=== PATIENT | female | born 1960 | race Caucasian/White ===

== ENCOUNTER 2016-05-17 08:05 | Emergency (ER) | payer OTHER ==
[2016-05-17] MEDS ORDERED: Ketorolac Tromethamine 30 MG/ML VIAL ONE (08:45)
[2016-05-17 08:56] LABS: #Basophils 0.1 thou/uL (0.0-0.2); #Eosinphils 0.2 thou/uL (0.0-0.7); #Lymphocytes 3.4 thou/uL (1.20-3.40); #Monocytes 0.9 thou/uL (0.11-0.59); #Neutrophils 5.7 thou/uL (1.40-6.50); %Basophils 0.8 % (0.0-1.0); %Eosinophils 1.9 % (0.0-10.0); %Monocytes 8.4 % (0.0-10.0); Hematocrit 39.9 % (36.0-47.0); Red Blood Cell (RBC) Count 4.24 mill/uL (4.20-5.40); White Blood Cell (WBC) Count 10.2 thou/uL (4.8-10.8)
[2016-05-17 09:06] LABS: Anion Gap 16 mmol/L (10-20); BUN (Urea Nitrogen) 16 mg/dL (9.8-20.1); Calc. Creatinine Clearance 0 mL/min (70-130); Calcium 9.3 mg/dL (7.8-10.44); Carbon Dioxide 24 mmol/L (22-29); Chloride 105 mmol/L (98-107); Estimated GFR-MDRD 85
[2016-05-17 09:10] LABS: Troponin I 0.017 ng/mL (< 0.028)
[2016-05-17] MEDS ORDERED: Ondansetron HCl/PF 4 MG/2 ML Vial ONE (09:45)
--- NOTE | 2016-05-17 11:15 | ERRECORD ---
[facility] EMERGENCY RECORD HPI CHEST PAIN (08:28 RWAG) CHIEF COMPLAINT: Patient presents for evaluation of chest pain, ongoing. HISTORIAN: History provided by patient, left intercostal,pleuritic chest pain. LOCATION: Symptoms are localized, most severe to left axilla. QUALITY: Unable to describe the quality of the pain. SEVERITY: Maximum severity of symptoms mild, Currently symptoms are mild, Maximum severity of pain rated as 5/10, Current severity of pain rated as 5/10. TIME COURSE: Patient unable to describe onset of symptoms, There has been no change in the patient's symptoms over time. ASSOCIATED WITH: No associated symptoms. EXACERBATED BY: Patient's condition exacerbated by deep breaths. RELIEVED BY: Patient's condition relieved by nothing. HEART SCORE: Patients history is Slightly Suspicious (0), Patients ECG is normal (0), Patients age is equal to or less than 45 (0), Patient has no risk factors known (0). ROS (08:31 RWAG) CONSTITUTIONAL: Negative constitutional review of systems. EYES: Negative eye review of systems. ENT: Negative ears, nose, throat review of systems. CARDIOVASCULAR: Historian reports chest pain. RESPIRATORY: Negative respiratory review of systems. GI: Negative gastrointestinal review of systems. GENITOURINARY FEMALE: Negative genitourinary review of systems. MUSCULOSKELETAL: Negative musculoskeletal review of systems. SKIN: Negative skin review of systems. NEUROLOGIC: Negative neurologic review of systems. ENDOCRINE: Negative endocrine review of systems. HEMO/LYMPHATIC: Normal hematologic/lymphatic system review. ALLERGIC/IMMUNOLOGIC: Normal allergy/immunologic system review. PSYCHIATRIC: Negative psychiatric review of systems. NOTES: All systems reviewed, negative except as described above. PAST MEDICAL HISTORY (08:13 KMOR) MEDICAL HISTORY: Notes: hepatic hemiagoma, Flu vaccine up to date, Tetanus immunization up to date. FEMALE SURGICAL HISTORY: breast reduction, Surgical history of section, Surgical history of hysterectomy. PSYCHIATRIC HISTORY: No previous psychiatric history. SOCIAL HISTORY: Patient drinks socially, Patient denies drug use, Patient has no smoking history. KNOWN ALLERGIES &a-1R&a+25V*p+0X*q4548I*c202B*c15G*c2P*p-0X&a-25V&a+1R Name: Lupe Thompson V : 1960 F56 MedRec: [id number] AcctNum: [id number] Prepared: Neetu May 17, 2016 11:13 by Interface Page 1 of 3 pMD [facility] EMERGENCY RECORD HYDROcodone bitartrate (bulk): Reaction: Rash traMADol: - itching CURRENT MEDICATIONS (08:15 KMOR) levothyroxine: TABLET : Strength - 100 mcg : ORAL Patient Dose: unk mcg Oral. VITAL SIGNS VITAL SIGNS: BP: 153/88, Resp: 18, Pain: 5, Time: 05/17/2016 08:11. (08:11 KMOR) Pulse: 85, Temp: 97.6 (Oral), O2 sat: 100 on Room Air, Time: 05/17/2016 08:14. (08:14 KMOR) BP: 158/88, Pulse: 84, Resp: 17, Pain: 6, Time: 05/17/2016 09:01. (09:01 AHOO) O2 sat: 94 on Room Air, Time: 05/17/2016 09:40. (09:40 KMOR) BP: 156/75, Pulse: 89, Resp: 20, O2 sat: 100 on Room Air, Time: 05/17/2016 09:45. (09:45 AHOO) Pain: 4, Time: 05/17/2016 10:08. (10:08 AHOO) BP: 140/75, Pulse: 86, Resp: 20, Temp: 97.7 (Oral), Pain: 0, O2 sat: 94 on Room Air, Time: 05/17/2016 10:30. (10:30 KMOR) PHYSICAL EXAM (08:32 RWAG) CONSTITUTIONAL: Vital Signs Reviewed. HEAD: Head exam normal. EYES: Eye exam normal. ENT: ENT exam normal. NECK: Neck exam normal. RESPIRATORY CHEST: Respiratory and chest exam normal. CARDIOVASCULAR: Cardiovascular assessment normal. ABDOMEN FEMALE: Abdominal exam normal. BACK: Back exam normal. UPPER EXTREMITY: Upper extremity exam normal. LOWER EXTREMITY: Lower extremity exam normal. NEURO: Neuro exam normal. SKIN: Skin exam normal. LYMPHATIC: Lymphatic exam normal. PSYCHIATRIC: Psychiatric exam normal. RADIOLOGYINTERPRETATION (10:21 WM) MATCH MARKER: Preliminary review of CT scans by, Radiologist, ll lobe infiltrate no pe. MEDICATION ADMINISTRATION SUMMARY Drug Name: morphine injection, Dose Ordered: 4 mg, Route: IV Push, Status: Given, Time: 09:51 05/17/2016, Drug Name: Zofran intravenous, Dose Ordered: 4 mg, Route: IV Push, Status: Given, Time: 09:49 05/17/2016, Drug Name: ketorolac injection, Dose Ordered: 30 mg, Route: IV Push, &a-1R&a+25V*p+0X*[id number]*c202B*c15G*c2P*p-0X&a-25V&a+1R Name: Lupe Thompson V : 1960 F56 MedRec: [id number] AcctNum: [id number] Prepared: [facility] May 17, 2016 11:13 by Interface Page 2 of 3 pMD [facility] EMERGENCY RECORD Status: Given, Time: 08:51 05/17/2016, Detailed record available in Medication Service section. PROBLEM LIST No recorded problems DIAGNOSIS (10:23 WMEI) FINAL: PRIMARY: Pneumonia. PRESCRIPTION Zithromax oral: CAPSULE : 250 mg : ORAL : Quantity: 1 Unit: tab(s) Route: ORAL Schedule: once a day (in the morning) Dispense: 6 Unit: tab(s) May substitute. Refills: No Refills . (10:21 WMEI) NOTES: No refills. (10:21 WMEI) acetaminophen-codeine: TABLET : 300 mg-30 mg : ORAL : Quantity: 1 Unit: tab(s) Route: ORAL Schedule: every 4 hours prn Dispense: 15 Unit: tab(s) May substitute. Refills: No Refills POTENTIAL ALLERGY REACTION: 'HYDROcodone bitartrate (bulk) [hydrocodone/hydrocodone bitartrate]', 'traMADol [tramadol/tramadol HCl]' Override Rationale: has tolerated. (10:29 WMEI) NOTES: No refills. (10:29 WMEI) DISPOSITION PATIENT: Disposition Type: Discharge, Disposition: *Discharge Home. (10:23 WMEI) Patient left the department. (11:09 KMOR) Nevarez: OO=JUDY Pozo, July KMOR=CHAYITO Partida, Marilynn RWAG=MD Evelio, Dionisio WMEI=DO Ugarte William &a-1R&a+25V*p+0X*v5501O*c202B*c15G*c2P*p-0X&a-25V&a+1R Name: DonnaLupe V : 1960 F56 MedRec: [id number] AcctNum: [id number] Prepared: Neetu May 17, 2016 11:13 by Interface Page 3 of 3 pMD MTDD
--- NOTE | 2016-05-17 11:22 | PICIS ---
[facility] EMERGENCY RECORD TRIAGE (08:08 KMOR) TRIAGE NOTES: Sharp left sided pain, worse with deep breath. (08:08 KMOR) PATIENT: AGE: 56, GENDER: female, : Sun 1960, TIME OF GREET: SatMay 17, 2016 08:05, PREFERRED LANGUAGE: Ukrainian, ETHNICITY: Not or , ECODE BILLING MAP: [facility], SSN: [id number], Zip Code: [address], KG WEIGHT: 81.65, , , PERSON ID: [id number], PCP: Family Medicine, [facility]. (08:08 KMOR) NAME: Lupe Thompson V, PHONE: . (08:09) COMPLAINT: Left side pain. (08:08 KMOR) ADMISSION: URGENCY: 3 Urgent, ADMISSION SOURCE: Home, TRANSPORT: CAR, BED: ER -03. (08:08 KMOR) ASSESSMENT: Assessment: A&OX4. RR EVEN AND UNLABORED., Symptoms began 2 hours ago. (08:13 KMOR) PAIN: Patient complains of pain described as, sharp, shooting, on a scale 0-10 patient rates pain as 5, Location LEFT SIDE. (08:13 KMOR) IMMUNIZATIONS: Flu vaccine up to date, Tetanus immunization up to date. (08:13 KMOR) SIRS SCORING: Heart Rate 55-109 (0), Temp range 96.8-101.1 (0), respiratory rate 12-24 (0), Mental Status altered: no (0), Infection or Suspected Infection: No. (08:13 KMOR) TRIAGE SCREENING: Patient denies suicidal ideation, Patient denies presence of domestic violence. (08:13 KMOR) LMP: LMP: Hysterectomy. (08:13 KMOR) TREATMENTS IN PROGRESS: Medications Given, Naprosyn 0200 x 2 tablets. (08:13 KMOR) PROVIDERS: TRIAGE NURSE: Marilynn Partida RN. (08:08 KMOR) VITAL SIGNS: BP 153/88, Resp 18, Pain 5, Time 05/17/2016 08:11. (08:11 KMOR) KNOWN ALLERGIES HYDROcodone bitartrate (bulk): Reaction: Rash traMADol: - itching CURRENT MEDICATIONS (08:15 KMOR) levothyroxine: TABLET : Strength - 100 mcg : ORAL Patient Dose: unk mcg Oral. VITAL SIGNS VITAL SIGNS: BP: 153/88, Resp: 18, Pain: 5, Time: 05/17/2016 08:11. (08:11 KMOR) Pulse: 85, Temp: 97.6 (Oral), O2 sat: 100 on Room Air, Time: 05/17/2016 08:14. (08:14 KMOR) BP: 158/88, Pulse: 84, Resp: 17, Pain: 6, Time: 05/17/2016 09:01. (09:01 AHOO) O2 sat: 94 on Room Air, Time: 05/17/2016 09:40. (09:40 KMOR) BP: 156/75, Pulse: 89, Resp: 20, O2 sat: 100 on Room Air, Time: 05/17/2016 &a-1R&a+25V*p+0X*e6703D*c202B*c15G*c2P*p-0X&a-25V&a+1R Name: Lupe Thompson V : 1960 F56 MedRec: [id number] AcctNum: [id number] Prepared: Neetu May 17, 2016 22:50 by Interface Page 1 of 9 pMD [facility] EMERGENCY RECORD 09:45. (09:45 AHOO) Pain: 4, Time: 05/17/2016 10:08. (10:08 AHOO) BP: 140/75, Pulse: 86, Resp: 20, Temp: 97.7 (Oral), Pain: 0, O2 sat: 94 on Room Air, Time: 05/17/2016 10:30. (10:30 KMOR) NURSING ASSESSMENT: CARDIOVASCULAR (08:18 KMOR) CONSTITUTIONAL: Patient arrives ambulatory, Gait steady, History obtained from patient, Patient appears comfortable, Patient cooperative, Patient alert, Oriented to person, place and time, Skin warm, Skin dry, Skin normal in color, Mucous membranes pink, Mucous membranes moist, Patient is well-groomed, Patient complains of Left side pain, Patient reports sharp, shooting left side pain started while driving home from work. No shortness of breath, no nausea, no vomiting, no injury. PAIN: sharp pain, shooting pain, to the left chest, on a scale 0-10 patient rates pain as 5. CARDIOVASCULAR: Cardiovascular assessment findings include heart rate normal, Heart rhythm normal sinus, Heart sounds normal, S1, S2, Left radial pulse +3(easily palpated, considered normal), Right radial pulse +3(easily palpated, considered normal), no associated dyspnea, no associated dizziness, no associated edema, no associated palpitations, no associated paresthesias, no associated syncopal episode. RESPIRATORY/CHEST: Breath sounds clear, Respiratory assessment findings include respiratory effort easy, Respirations regular, Conversing normally, Neck and chest exam findings include trachea midline, Chest expansion equal, Chest movement symmetrical, no signs of distress, no associated cough noted. NOTES: Patient tolerated procedure well. NURSING PROCEDURE: LOAD BUILDER (08:20 KMOR) PATIENT IDENTIFIER: Patient actively involved in identification process, Patient's identity verified by patient stating name, Patient's identity verified by patient stating date. LOAD BUILDER: Cardiac monitoring indicated for complaint of chest pain, Patient placed on manager monitoring, Heart rate: 85, showing normal sinus rhythm, Patient placed on non-invasive blood pressure monitor, with disposable blood pressure cuff applied, Patient placed on continuous pulse oximetry, Adult/pediatric oxisensor applied, Oxygen saturation 98%. NOTES: Patient tolerated procedure well. NURSING PROCEDURE: DISCHARGE NOTE (11:03 AHOO) DISCHARGE: Patient discharged to home, ambulating without assistance, family driving, accompanied by parent, Summary of Care printed/ provided, Transition record given to patient, Discharge instructions given to patient, Discharge instructions given to father, Prescriptions given and instructions on side effects given, Above person(s) verbalized understanding of discharge instructions and follow-up care, Patient treated and evaluated by physician, &a-1R&a+25V*p+0X*p8923I*c202B*c15G*c2P*p-0X&a-25V&a+1R Name: DonnaLupe V : 1960 F56 MedRec: [id number] AcctNum: [id number] Prepared: Neetu May 17, 2016 22:50 by Interface Page 2 of 9 pMD [facility] EMERGENCY RECORD Notes: PT DAD PICKED HER UP. NURSING PROCEDURE: EKG CHART (08:28 KMOR) PATIENT IDENTIFIER: Patient actively involved in identification process, Patient's identity verified by patient stating name, Patient's identity verified by patient stating date. EKG: EKG indicated for complaint of chest pain, 12 lead EKG performed on the left chest, done by CHAYITO Subramanian, first EKG. FOLLOW-UP: After procedure, EKG for interpretation given to Dr. Fraser. NOTES: Patient tolerated procedure well. NURSING PROCEDURE: IV PATIENT IDENITIFIER: Patient actively involved in identification process, Patient's identity verified by patient stating name, Patient's identity verified by patient stating date, Patient's identity verified by hospital ID bracelet. (08:40 AHOO) Patient actively involved in identification process, Patient's identity verified by patient stating name, Patient's identity verified by patient stating date. (10:35 KMOR) IV SITE 1: IV therapy indicated for medication administration, IV established, to the right antecubital, using a 20 gauge catheter, in one attempt, Saline lock established, Flushed with normal saline (mls): 10ml, Labs drawn at time of placement, labeled in the presence of the patient and sent to lab. (08:40 AHOO) FOLLOW-UP SITE 1: IV discontinued, due to patient being discharged, catheter intact. (10:35 KMOR) NOTES: Patient tolerated procedure well. (10:35 KMOR) NURSING PROCEDURE: NURSE NOTES NURSES NOTES: Notes: Dr. Ugarte in to recheck patient. patient reports pain got worse just before pain medication but now going back down. Pain now just left of midline sternum. (09:23 KMOR) Notes: Dr. Ugarte in to review results with patient. (10:20 KMOR) NURSING PROCEDURE: TRANSPORT TO TESTS PATIENT IDENTIFIER: Patient actively involved in identification process, Patient's identity verified by patient stating name, Patient's identity verified by patient stating date. (09:55 KMOR) TRANSPORT TO TESTS: Transport indicated to facilitate diagnosis, Patient transported to CT scan, via wheelchair, Accompanied by x-ray anesthesia technician. (09:55 KMOR) FOLLOW-UP: After procedure, patient returned to emergency department. (10:05 AHOO) ORDER DETAILS &a-1R&a+25V*p+0X*z8686G*c202B*c15G*c2P*p-0X&a-25V&a+1R Name: Lupe Thompson V : 1960 F56 MedRec: [id number] AcctNum: [id number] Prepared: SatMay 17, 2016 22:50 by Interface Page 3 of 9 pMD [facility] EMERGENCY RECORD Order Name: B type Natriuretic Peptide, Status: Active, Time: 08:25 05/17/2016, User: AMANDA, - Ordered for: MD Fraser Richard, - Entered by: MD Fraser Richard - SatMay 17, 2016 08:25, - Quantity: 1, Order Name: Basic Metabolic Panel, Status: Active, Time: 08:25 05/17/2016, User: AMANDA, - Ordered for: MD Fraser Richard, - Entered by: MD Fraser Richard - SatMay 17, 2016 08:25, - Quantity: 1, Order Name: Cardiac Profile w/CKMB & Troponin - I, Status: Active, Time: 08:25 05/17/2016, User: AMANDA, - Ordered for: MD Fraser Richard, - Entered by: MD Fraser Richard - SatMay 17, 2016 08:25, - Quantity: 1, Order Name: CBC with Differential, Status: Active, Time: 08:25 05/17/2016, User: AMANDA, - Ordered for: MD Fraser Richard, - Entered by: MD Fraser Richard - SatMay 17, 2016 08:25, - Quantity: 1, Order Name: CTA Angio Chest W WO Con(PE Protocol), Status: Active, Time: 09:31 05/17/2016, User: AMANDA, - Ordered for: MD Fraser Richard, - Entered by: MD Fraser Richard - SatMay 17, 2016 09:31, - Quantity: 1, Order Name: D-Dimer (Quantitative), Status: Active, Time: 08:25 05/17/2016, User: AMANDA, - Ordered for: MD Fraser Richard, - Entered by: MD Fraser Richard - SatMay 17, 2016 08:25, - Quantity: 1, Order Name: EKG 12 Lead in Emergency Room, Status: Active, Time: 08:25 05/17/2016, User: AMANDA, - Ordered for: MD Fraser Richard, - Entered by: MD Fraser Richard - SatMay 17, 2016 08:25, - Quantity: 1, Order Name: SALINE LOCK, Status: Done, Time: 08:52 05/17/2016, User: YUNIER, - Ordered for: MD Fraser Richard, - Entered by: MD Fraser Richard - SatMay 17, 2016 08:25, - Quantity: 1, Order Name: XR Chest 1 View Portable, Status: Active, Time: 08:25 05/17/2016, User: AMANDA, - Ordered for: MD Fraser Richard, - Entered by: MD Fraser Richard - SatMay 17, 2016 08:25, - Quantity: 1. MEDICATION ADMINISTRATION SUMMARY Drug Name: morphine injection, Dose Ordered: 4 mg, Route: IV Push, Status: Given, Time: 09:51 05/17/2016, &a-1R&a+25V*p+0X*f6969A*c202B*c15G*c2P*p-0X&a-25V&a+1R Name: Lupe Thompson V : 1960 F56 MedRec: [id number] AcctNum: [id number] Prepared: SatMay 17, 2016 22:50 by Interface Page 4 of 9 D [facility] EMERGENCY RECORD Drug Name: Zofran intravenous, Dose Ordered: 4 mg, Route: IV Push, Status: Given, Time: 09:49 05/17/2016, Drug Name: ketorolac injection, Dose Ordered: 30 mg, Route: IV Push, Status: Given, Time: 08:51 05/17/2016, Detailed record available in Medication Service section. MEDICATION SERVICE ketorolac injection: Order: ketorolac injection (ketorolac tromethamine) - Dose: 30 mg : IV Push POTENTIAL CONTRAINDICATED INTERACTION: aspirin oral (aspirin) - Benefits outweigh risks, Patient tolerated similar in past Schedule: Now Ordered by: Dionisio Fraser MD Entered by: Dionisio Fraser MD [facility] May 17, 2016 08:26 , Acknowledged by: Tracy Pozo LVN [facility] May 17, 2016 08:45 Documented as given by: Tracy Pozo LVN [facility] May 17, 2016 08:51 Patient, Medication, Dose, Route and Time verified prior to administration. Amount given: 30mg, IV SITE #1 IVP, initial medication, Slowly, Catheter placement confirmed via flush prior to administration, IV site without signs or symptoms of infiltration during medication administration, No swelling during administration, No drainage during administration, IV flushed after administration, Correct patient, time, route, dose and medication confirmed prior to administration, Patient advised of actions and side-effects prior to administration, Allergies confirmed and medications reviewed prior to administration, Patient in position of comfort, Side rails up, Cart in lowest position, Family at bedside. : Follow Up : Response assessment performed, No signs or symptoms of allergic reaction noted, Decreased pain, _IV SITE #1:_. (09:24 KMOR) morphine injection: Order: morphine injection (morphine sulfate) - Dose: 4 mg : IV Push POTENTIAL ALLERGY REACTION: 'HYDROcodone bitartrate (bulk) [hydrocodone/hydrocodone bitartrate]', 'traMADol [tramadol/tramadol HCl]' - has taken before Schedule: Now Ordered by: Dionisio Fraser MD Entered by: Dionisio Fraser MD [facility] May 17, 2016 09:29 , Acknowledged by: Marilynn Partida RN [facility] May 17, 2016 09:32 Documented as given by: Tracy Pozo LVN [facility] May 17, 2016 09:51 Patient, Medication, Dose, Route and Time verified prior to administration. Amount given: 4MG, IV SITE #1 IVP, initial medication, Slowly, Catheter placement confirmed via flush prior to administration, IV site without signs or symptoms of infiltration during medication administration, No swelling during administration, No drainage during administration, IV flushed after administration, Correct patient, time, route, dose and medication confirmed prior to administration, Patient advised of actions and side-effects prior to administration, &a-1R&a+25V*p+0X*w0506J*c202B*c15G*c2P*p-0X&a-25V&a+1R Name: ElizabethtanaLupe V : 1960 F56 MedRec: [id number] AcctNum: [id number] Prepared: Neetu May 17, 2016 22:50 by Interface Page 5 of 9 pMD [facility] EMERGENCY RECORD Allergies confirmed and medications reviewed prior to administration, Patient in position of comfort, Side rails up, Cart in lowest position, Family at bedside, SLOW PUSH OVER 4 MIN. : Follow Up : Response assessment performed, No signs or symptoms of allergic reaction noted, Decreased pain, _IV SITE #1:_, PAIN LEVEL DECREASED TO 4/10. (10: [facility]) Zofran intravenous: Order: Zofran intravenous (ondansetron HCl) - Dose: 4 mg : IV Push Schedule: Now Ordered by: Dionisio Fraser MD Entered by: Dionisio Fraser MD [facility] May 17, 2016 09:30 , Acknowledged by: Marilynn Partida RN [facility] May 17, 2016 09:32 Documented as given by: Tracy JUDY Pozo [facility] May 17, 2016 09:49 Patient, Medication, Dose, Route and Time verified prior to administration. Amount given: 4MG, IV SITE #1 IVP, initial medication, Slowly, Awake and alert- acceptable, Catheter placement confirmed via flush prior to administration, IV site without signs or symptoms of infiltration during medication administration, No swelling during administration, No drainage during administration, IV flushed after administration, Correct patient, time, route, dose and medication confirmed prior to administration, Patient advised of actions and side-effects prior to administration, Allergies confirmed and medications reviewed prior to administration, Patient in position of comfort, Side rails up, Cart in lowest position, Family at bedside. : Follow Up : Response assessment performed, No signs or symptoms of allergic reaction noted, _IV SITE #1:_. (10: [facility]) HPI CHEST PAIN (08:28 RW) CHIEF COMPLAINT: Patient presents for evaluation of chest pain, ongoing. HISTORIAN: History provided by patient, left intercostal,pleuritic chest pain. LOCATION: Symptoms are localized, most severe to left axilla. QUALITY: Unable to describe the quality of the pain. SEVERITY: Maximum severity of symptoms mild, Currently symptoms are mild, Maximum severity of pain rated as 5/10, Current severity of pain rated as 5/10. TIME COURSE: Patient unable to describe onset of symptoms, There has been no change in the patient's symptoms over time. ASSOCIATED WITH: No associated symptoms. EXACERBATED BY: Patient's condition exacerbated by deep breaths. RELIEVED BY: Patient's condition relieved by nothing. HEART SCORE: Patients history is Slightly Suspicious (0), Patients ECG is normal (0), Patients age is equal to or less than 45 (0), Patient has no risk factors known (0). &a-1R&a+25V*p+0X*l8587J*c202B*c15G*c2P*p-0X&a-25V&a+1R Name: Lupe Thompson V : 1960 F56 MedRec: [id number] AcctNum: [id number] Prepared: Neetu May 17, 2016 22:50 by Interface Page 6 of 9 pMD [facility] EMERGENCY RECORD ROS (08:31 RWAG) CONSTITUTIONAL: Negative constitutional review of systems. EYES: Negative eye review of systems. ENT: Negative ears, nose, throat review of systems. CARDIOVASCULAR: Historian reports chest pain. RESPIRATORY: Negative respiratory review of systems. GI: Negative gastrointestinal review of systems. GENITOURINARY FEMALE: Negative genitourinary review of systems. MUSCULOSKELETAL: Negative musculoskeletal review of systems. SKIN: Negative skin review of systems. NEUROLOGIC: Negative neurologic review of systems. ENDOCRINE: Negative endocrine review of systems. HEMO/LYMPHATIC: Normal hematologic/lymphatic system review. ALLERGIC/IMMUNOLOGIC: Normal allergy/immunologic system review. PSYCHIATRIC: Negative psychiatric review of systems. NOTES: All systems reviewed, negative except as described above. PAST MEDICAL HISTORY (08:13 KMOR) MEDICAL HISTORY: Notes: hepatic hemiagoma, Flu vaccine up to date, Tetanus immunization up to date. FEMALE SURGICAL HISTORY: breast reduction, Surgical history of section, Surgical history of hysterectomy. PSYCHIATRIC HISTORY: No previous psychiatric history. SOCIAL HISTORY: Patient drinks socially, Patient denies drug use, Patient has no smoking history. PHYSICAL EXAM CONSTITUTIONAL: Vital Signs Reviewed. (08:32 RWAG) Vital Signs Reviewed, Patient afebrile, Blood pressure normal bilaterally, Respiratory rate normal, Patient alert and oriented to person, place and time. (22:37 WMEI) HEAD: Head exam normal. (08:32 RWAG) Head exam normal, Head exam included findings of head atraumatic, normocephalic. (22:37 WMEI) EYES: Eye exam normal. (08:32 RWAG) Eye exam normal, Conjunctiva normal, Sclera normal. (22:37 WMEI) ENT: ENT exam normal. (08:32 RWAG) ENT exam normal, Ear exam normal, Nose exam normal, Pharynx exam normal. (22:38 WMEI) NECK: Neck exam normal. (08:32 RWAG) Neck exam included findings of normal range of motion, Trachea midline. (22:38 WMEI) RESPIRATORY CHEST: Respiratory and chest exam normal. (08:32 RWAG) Wheezing present, audibly, Breath sounds diminished, Chest exam included findings of chest movement symmetrical. (22:39 WMEI) CARDIOVASCULAR: Cardiovascular assessment normal. (08:32 RWAG) Heart rate regular rate and rhythm, Heart sounds normal. (22:39 WMEI) &a-1R&a+25V*p+0X*x1981L*c202B*c15G*c2P*p-0X&a-25V&a+1R Name: Lupe Thompson V : 1960 F56 MedRec: [id number] AcctNum: [id number] Prepared: Neetu May 17, 2016 22:50 by Interface Page 7 of 9 pMD [facility] EMERGENCY RECORD ABDOMEN FEMALE: Abdominal exam normal. (08:32 RWAG) Abdominal exam included findings of abdomen nontender, Liver normal, Spleen normal, no distension. (22:40 WMEI) BACK: Back exam normal. (08:32 RWAG) UPPER EXTREMITY: Upper extremity exam normal. (08:32 RWAG) Upper extremity exam included findings of inspection normal, Range of motion normal, Motor strength normal. (22:40 WMEI) LOWER EXTREMITY: Lower extremity exam normal. (08:32 RWAG) Lower extremity exam included findings of inspection normal, Range of motion normal, Motor strength normal, Edema present, pitting, +2. (22:40 WMEI) NEURO: Neuro exam normal. (08:32 RWAG) Jacob coma scale, Neuro exam findings include patient oriented to person, place and time, Speech normal. (22:41 WMEI) SKIN: Skin exam normal. (08:32 RWAG) LYMPHATIC: Lymphatic exam normal. (08:32 RWAG) PSYCHIATRIC: Psychiatric exam normal. (08:32 RWAG) Psychiatric exam included findings of patient oriented to person place and time, Normal affect, Judgment normal, Insight normal. (22:41 WMEI) LAB INTERPRETATION (10:22 WMEI) INTERPRETATION: I reviewed the lab results, CBC normal, Chemistry normal, Cardiac enzymes normal, D-dimer, elevated. EVENTS TRANSFER: Triage to Emergency Emergency Room -03. (Neetu May 17, 2016 08:08 KMOR) Removed from Emergency Emergency Room -03. (11:09 KMOR) RADIOLOGYINTERPRETATION (10:21 WMEI) LAW FIRM RECEPTIONIST: Preliminary review of CT scans by, Radiologist, ll lobe infiltrate no pe. PROBLEM LIST No recorded problems DIAGNOSIS (10:23 WMEI) FINAL: PRIMARY: Pneumonia. DISPOSITION PATIENT: Disposition Type: Discharge, Disposition: *Discharge Home. (10:23 WMEI) Patient left the department. (11:09 KMOR) INSTRUCTION (10:23 WMEI) DISCHARGE: PNEUMONIA (ADULT). FOLLOWUP: [place], [place] [facility], [address], [address], [facility] [address], [id number]. &a-1R&a+25V*p+0X*b4302D*c202B*c15G*c2P*p-0X&a-25V&a+1R Name: Donna Lupe Perdue : 1960 F56 MedRec: [id number] AcctNum: [id number] Prepared: SatMay 17, 2016 22:50 by Interface Page 8 of 9 pMD [facility] EMERGENCY RECORD SPECIAL: Follow-up with your PCP. PRESCRIPTION Zithromax oral: CAPSULE : 250 mg : ORAL : Quantity: 1 Unit: tab(s) Route: ORAL Schedule: once a day (in the morning) Dispense: 6 Unit: tab(s) May substitute. Refills: No Refills . (10:21 WMEI) NOTES: No refills. (10:21 WMEI) acetaminophen-codeine: TABLET : 300 mg-30 mg : ORAL : Quantity: 1 Unit: tab(s) Route: ORAL Schedule: every 4 hours prn Dispense: 15 Unit: tab(s) May substitute. Refills: No Refills POTENTIAL ALLERGY REACTION: 'HYDROcodone bitartrate (bulk) [hydrocodone/hydrocodone bitartrate]', 'traMADol [tramadol/tramadol HCl]' Override Rationale: has tolerated. (10:29 WMEI) NOTES: No refills. (10:29 WMEI) IMAGING *EKG: Image captured from scanner. (09:32 AHOO) MONITOR STRIPS: Image captured from scanner. (09:34 AHOO) *DISCHARGE INSTRUCTIONS RECEIPT: Image captured from scanner. (11:18 AHOO) *SUPPLY CHARGE SHEET: Image captured from scanner. (11:18 AHOO) ADMIN DIGITAL SIGNATURE: CHAYITO Partida Krista. (15:53 KMOR) DO Ugarte William. (22:42 WMEI) Nevarez: AHOO=JUDY Pozo, July KMOR=CHAYITO Partida Krista RWAG=MD Fraser Richard WMEI=DO Ugarte William &a-1R&a+25V*p+0X*x0151C*c202B*c15G*c2P*p-0X&a-25V&a+1R Name: Lupe Thompson V : 1960 F56 MedRec: [id number] AcctNum: [id number] Prepared: SatMay 17, 2016 22:50 by Interface Page 9 of 9 pMD [facility] MEDICATION RECONCILIATION You were seen in the Emergency Department on: SatMay 17, 2016 KNOWN ALLERGIES HYDROcodone bitartrate (bulk): Reaction: Rash traMADol: - itching MEDICATIONS GIVEN WHILE IN THE EMERGENCY DEPARTMENT ketorolac injection (ketorolac tromethamine) - Dose: 30 milligram(s) : IV Push morphine injection (morphine sulfate) - Dose: 4 milligram(s) : IV Push Zofran intravenous (ondansetron HCl) - Dose: 4 milligram(s) : IV Push HOME MEDICATIONS CONTINUE PRESCRIBED levothyroxine : TABLET : Strength - 100 mcg : ORAL Continue as prescribed Patient had been taking: unk mcg Oral. Notes from the emergency department Reviewed with patient PRESCRIPTIONS (2) Printed (2) Zithromax oral : CAPSULE : 250 mg : ORAL Quantity: 1, Unit: tab(s), Route: ORAL, Schedule: once a day (in the morning), Dispense: 6 Unit: tab(s) &a-1R&a+25V*p+0X*a4208Q*c202B*c15G*c2P*p-0X&a-25V&a+1R Name: Lupe Thompson V : 1960 F56 MedRec: [id number] AcctNum: [id number] Prepared: Neetu May 17, 2016 22:50 by Interface pMD AGATAD
--- NOTE | 2016-05-17 15:46 | RAD ---
PORTABLE CHEST: Date: 05/17/16 An AP portable film at 0828 hours shows a normal sized heart. There is no congestive change. There m ay be a left lower lobe infiltrate, but it is not clear on this study. No large effusions are seen. See CT report to follow. IMPRESSION: Question of left lower lobe infiltrate. POS: HOME
--- NOTE | 2016-05-17 15:52 | CT ---
CT ANGIO OF THE CHEST WITH CONTRAST: Date: 05/17/[address] of the chest was done for evaluation of chest pain with an elevated D-Dimer. Axial slices were acquired after giving a bolus of IV contrast. Oblique coronal reformations were done through th e pulmonary arteries. FINDINGS: There is good opacification of the pulmonary arteries with no filling defects to suggest emboli. The re is no sign of aortic aneurysm or dissection. The major finding on the study is a left lower lobe infiltrate with a small left pleural effusion co nsistent with pneumonia. No focal changes were seen in the right lung. No mediastinal mass or adenop athy was present. There is a little parenchymal asymmetry in the right breast compared to the left. While this could b e normal for this patient, if she has not had a mammogram in recent times, it would be a cramer move t o be certain. Scans into the upper abdomen showed at least two masses in the dome of the liver, one measuring abou t 2.6 cm in size and the other about 5.0 cm in size. Peripheral vessels are seen around them, which are fairly typical of a hemangioma. My understanding in talking with the ER physician is that she do es carry that diagnosis. No other acute changes were seen in this area. IMPRESSION: 1. No evidence of pulmonary embolism. 2. Left lower lobe pneumonia with small pleural effusion. 3. At least two hepatic masses which have initial characteristics fairly suggestive of some angioma s. This is consistent with the patient's clinical history. 4. Mild parenchymal asymmetry in the right breast. A follow-up mammogram, if she has not had one re cently, would be prudent. POS: HOME
== END 2016-05-17 11:03 | disposition home or self-care (01) ==
LOC: BURERS 08:05
DX: J18.9 Pneumonia, unspecified organism (principal); Z79.899 Other long term (current) drug therapy
CPT/HCPCS: 71010; 71275; 80048; 82553; 83880; 84484; 85025; 85379; 93005; 96374; 96375; J1885; J2270; J2405